=== PATIENT | female | born 1955 | race Caucasian/White ===

== ENCOUNTER 2018-11-15 04:34 | Emergency (ER) | payer OTHER, MEDICARE ==
[2018-11-15] MEDS ORDERED: Tetracaine 0.5% OPHTH SOLN/PF 4 ML BOT ONE (05:36)
== END 2018-11-15 06:00 | disposition home or self-care (01) ==
LOC: MADERS 04:34
DX: H18.821 Corneal disorder due to contact lens, right eye (principal); I10 Essential (primary) hypertension; E03.9 Hypothyroidism, unspecified; F17.210 Nicotine dependence, cigarettes, uncomplicated; Z79.899 Other long term (current) drug therapy
CPT/HCPCS: 99283

== ENCOUNTER 2021-10-08 00:04 | Emergency (ER) | payer MEDICARE, OTHER | END 2021-10-08 00:58 | disposition home or self-care (01) | LOC: MADERS 00:04 | DX: T85.615A Breakdown (mechanical) of other nervous system device, implant or graft, initial encounter (principal); I10 Essential (primary) hypertension; F17.210 Nicotine dependence, cigarettes, uncomplicated; E03.9 Hypothyroidism, unspecified; Z79.899 Other long term (current) drug therapy | CPT/HCPCS: 99283 ==